=== PATIENT | female | born 1970 | race Caucasian/White ===

== ENCOUNTER 2024-05-11 10:49 | Emergency (ER) | payer MEDICAID ==
[~2024-05-11] VITALS: Ht 170.2 cm; Wt 103.2 kg
[2024-05-11 10:57] VITALS: BP 157/95; TEMP 98.1
[2024-05-11] MEDS ORDERED: PERCOCET 325 MG1 TA2 PO (13:28)
[2024-05-11 13:38] VITALS: PULSE 70
== END 2024-05-11 13:38 | disposition home or self-care (01) ==
LOC: COL.ER 10:49
DX: S43.402A Unspecified sprain of left shoulder joint, initial encounter (principal); V89.2XXA Person injured in unspecified motor-vehicle accident, traffic, initial encounter; W22.8XXA Striking against or struck by other objects, initial encounter